=== PATIENT | female | born 1960 | race Two or more races ===

== ENCOUNTER → 2018-07-23 | Outpatient (CLI) | payer MEDICARE ==
[~2018-07-23] MED LIST: AMLO10TA8 PO; CINA60TA PO; ISOS20TA58 PO; LABE100T6 PO; ROSU20TA2 PO; SEVE800T8 PO
[2018-07-23 10:44] LABS: BASOPHILS # (AUTO) 0.03 x10^3/uL (0-0.1); BASOPHILS % (AUTO) 1 % (0-1); EOSINOPHILS % (AUTO) 7 % (1-7); LYMPHOCYTES # (AUTO) 0.87 x10^3/uL (1-3.4); LYMPHOCYTES % (AUTO) 20 % (22-44); MD NO; MEAN CORPUSCULAR HEMOGLOBIN 32.7 pg (27.0-34.8); MEAN CORPUSCULAR HGB CONC 33.2 g/dL (32.4-35.8); MEAN CORPUSCULAR VOLUME 98.5 fL (80-100); MEAN PLATELET VOLUME 7.8 fL (7.4-10.4); MONOCYTES # (AUTO) 0.47 x10^3/uL (0.2-0.8); MONOCYTES % (AUTO) 11 % (2-9); NEUTROPHILS # (AUTO) 2.74 x10^3/uL (1.8-6.8); NEUTROPHILS % (AUTO) 62 % (42-75); PLATELET COUNT 201 x10^3/uL (130-400); RED BLOOD COUNT 3.58 x10^6/uL (3.82-5.3); RED CELL DISTRIBUTION WIDTH 14.4 % (9.6-15.2)
[2018-07-23 10:55] LABS: INTERNATIONAL NORMALIZED RATIO 1.06 (0.93-1.1); PROTHROMBIN TIME 11.1 Seconds (9.6-11.5)
[2018-07-23 10:56] LABS: ALANINE AMINOTRANSFERASE 27 U/L (12-78); ALBUMIN 3.6 g/dL (3.4-5.0); ANION GAP 7 mmol/L (5-15); CHLORIDE 103 mmol/L (98-107); CREATININE 8.62 mg/dL (0.55-1.02)
[2018-07-23 10:59] LABS: ALKALINE PHOSPHATASE 97 U/L (45-117); BILIRUBIN,TOTAL 0.5 mg/dL (0.2-1.0); TOTAL PROTEIN 7.8 g/dL (6.4-8.2)
== END | disposition home or self-care (01) ==
LOC: STAR 09:18
PROVIDERS: ATTEND Surgery
DX: Z01.818 Encounter for other preprocedural examination (principal)
CPT/HCPCS: 36415; 80053; 85025; 85610; 85730; 93005

== ENCOUNTER 2018-07-30 10:39 | Day surgery (SDC) | payer MEDICARE, MEDICAID ==
[~2018-07-30] VITALS: Ht 167.6 cm; Wt 110.4 kg
[~2018-07-30 10:39] MED LIST changes: +EPHEDRINE 50 MG/ML, 1ML ONE
[2018-07-30] MEDS ORDERED: SODIUM CHLORIDE 0.9% 1,000 ML IV SCH (11:19)
[2018-07-30 11:58] VITALS: BP 162/92
[2018-07-30] MEDS ORDERED: MIDAZOLAM 1 MG/ML, 2ML ONE (12:01)
[2018-07-30] MEDS ORDERED: FENTANYL PF 100 MCG/2ML ONE ×2 (12:01→15:45)
[2018-07-30] MEDS ORDERED: BUPIVACAINE/PF-EPI 0.5% 1:200K ONE (12:38)
[2018-07-30] MEDS ORDERED: PROTAMINE SULFATE 10 MG/ML, 5ML ONE (12:38)
[2018-07-30] MEDS ORDERED: HEPARIN 1,000 UNITS/ML, 10ML ONE (12:38)
[2018-07-30] MEDS ORDERED: THROMBIN 20,000 UNIT VIAL TP ONE (12:38)
[2018-07-30] MEDS ORDERED: FENTANYL PF 250 MCG/5ML ONE (13:02)
[2018-07-30] MEDS ORDERED: ALBUTEROL/IPRATROPIUM 2.5MG/0.5MG, 3 ML NPPB PRN (14:00)
[2018-07-30] MEDS ORDERED: MEPERIDINE/PF 25MG/0.5ML IVPush PRN (14:00)
[2018-07-30] MEDS ORDERED: HYDROmorphone 2 MG/ML, 1ML IVPush PRN (14:00)
[2018-07-30] MEDS ORDERED: ACETAMINOPHEN 325 MG TABLET PO PRN (14:00)
[2018-07-30] MEDS ORDERED: MIDAZOLAM 1 MG/ML, 2ML IV PRN (14:00)
[2018-07-30] MEDS ORDERED: hydrALAzine 20 MG/ML, 1ML IV PRN (14:00)
[2018-07-30] MEDS ORDERED: SCOPOLAMINE PATCH, 1.5MG PATCH.TD72 TD PRN (14:00)
[2018-07-30] MEDS ORDERED: OXYcodone 5 MG/5 ML ORAL.SOL UDC PO PRN (14:00)
[2018-07-30] MEDS ORDERED: FENTANYL PF 100 MCG/2ML IV PRN (14:00)
[2018-07-30] MEDS ORDERED: PROMETHAZINE 25 MG/ML, 1ML IV PRN (14:00)
[2018-07-30] MEDS ORDERED: ONDANSETRON 2MG/ML, 2ML IV PRN (14:00)
[2018-07-30] MEDS ORDERED: PROPOFOL 10 MG/ML, 20ML ONE (14:35)
[2018-07-30] MEDS ORDERED: ONDANSETRON 2MG/ML, 2ML ONE (14:35)
[2018-07-30] MEDS ORDERED: CEFAZOLIN 1,000 MG ONE (14:35)
[2018-07-30] MEDS ORDERED: DEXAMETHASONE 4 MG/ML, 1ML ONE (14:35)
[2018-07-30] MEDS ORDERED: METOPROLOL 1 MG/ML, 5ML ONE (15:21)
[2018-07-30] MEDS ORDERED: PROMETHAZINE 25 MG/ML, 1ML ONE (15:21)
[2018-07-30] MEDS ORDERED: HYDROcodone/APAP 5/325 TABLET PO PRN (15:30)
[2018-07-30] MEDS: METOPROLOL 1 MG/ML, 5ML IV PRN ×5 (15:31→16:00)
[2018-07-30] MEDS ORDERED: OXYcodone 5 MG/5 ML ORAL.SOL UDC ONE (15:45)
== END 2018-07-30 17:50 | disposition home or self-care (01) ==
LOC: OUT 10:39
PROVIDERS: ATTEND Surgery
DX: T82.590A Other mechanical complication of surgically created arteriovenous fistula, initial encounter (principal); I12.0 Hypertensive chronic kidney disease with stage 5 chronic kidney disease or end stage renal disease; N18.6 End stage renal disease; E78.5 Hyperlipidemia, unspecified; D64.9 Anemia, unspecified; Y83.8 Other surgical procedures as the cause of abnormal reaction of the patient, or of later complication, without mention of misadventure at the time of the procedure; Y92.89 Other specified places as the place of occurrence of the external cause; Z98.890 Other specified postprocedural states; Z79.82 Long term (current) use of aspirin; Z86.718 Personal history of other venous thrombosis and embolism
CPT/HCPCS: 36415; 36818; 80047; J0690; J1100; J1644; J2250; J2405; J2550; J2704; J3010; J7030; J2720